=== PATIENT | male | born 1990 | race Caucasian/White ===

== ENCOUNTER 2017-05-26 23:54 | Inpatient (IN) | payer BC, OTHER ==
[2017-05-27] VITALS: BMI 34.2
[2017-05-27 02:06] LABS: BASOPHIL 0.4 % (0-2.0); MCH 27.8 pg (25.7-33.7); MCHC 33.1 g/dl (32.0-35.9); MEAN CELL VOLUME 83.7 fl (80-96); MEAN PLT VOLUME 8.8 fl (7.5-11.1); NEUTROPHILS 74.8 % (42.8-82.8); PLATELET COUNT 200 K/MM3 (134-434); RDW 12.4 % (11.9-15.9); WHITE BLOOD COUNT 10.1 K/mm3 (4.0-10.0)
[2017-05-27 02:08] LABS: URINE APPEARANCE CLEAR; URINE BILIRUBIN NEGATIVE (NEGATIVE); URINE COLOR LTYELLOW; URINE GLUCOSE (UA) NEGATIVE (NEGATIVE); URINE KETONE TRACE (NEGATIVE); URINE LEUK ESTERASE NEGATIVE (NEGATIVE); URINE NITRITE NEGATIVE (NEGATIVE); URINE PROTEIN NEGATIVE (NEGATIVE); URINE UROBILINOGEN NEGATIVE E.U./dl (0.2-1.0)
[2017-05-27 02:15] LABS: URINE BLOOD 2+ (NEGATIVE)
[2017-05-27 02:16] LABS: URINE BACTERIA RARE /hpf (NONE SEEN); URINE MUCUS FEW; URINE RBC 18 /hpf (0-3); URINE WBC 2 /hpf (3-5)
[2017-05-27 02:28] LABS: ALBUMIN 3.7 g/dl (3.4-5.0); ANION GAP 6 (8-16); BILIRUBIN,TOTAL 0.4 mg/dL (0.2-1.0); CALCIUM 8.8 mg/dL (8.5-10.1); CO2 33 mmol/L (21-32); CREATININE 1.1 mg/dL (0.7-1.3); GLUCOSE,RANDOM 102 mg/dL (74-106); SGOT/AST 18 U/L (15-37); SGPT/ALT 26 U/L (12-78); TOT PROT 6.3 g/dl (6.4-8.2)
[2017-05-27 02:29] LABS: ALK PHOS 57 U/L (45-117)
--- NOTE | 2017-05-27 02:59 | PDOC ---
History of Present Illness - General History Source: Patient Exam Limitations: No Limitations - History of Present Illness Initial Comments: 05/27/17 03:05 The patient is a 26 year old male with a no significant past medical history who presents to the ED with complaints of right upper quadrant pain for 6 months. Patient reports intermittent right upper quadrant pain that progressively worsened today with nausea. Patient states his right upper quadrant pain is 9/10 in severity and slightly radiates to his right sided back. He notes his right upper quadrant pain is worsened with meals. Patient reports visiting his PMD for his right upper quadrant pain and was told is was a possible gallstone. Denies fevers or chills. Denies vomiting or diarrhea. Denies chest pain or shortness of breath. Denies dysuria, frequency, urgency, or changes in urinary output. <Sara Saez - Last Filed: 05/27/17 03:05> <Kathryn Carranza - Last Filed: 05/28/17 23:16> - General Chief Complaint: Pain Stated Complaint: PAIN Time Seen by Provider: 05/27/17 02:41 Past History <Sara Saez - Last Filed: 05/27/17 03:05> - Past Medical History Other medical history: denies - Psycho/Social/Smoking Cessation Hx Suicidal Ideation: No Smoking History: Never smoked Hx Alcohol Use: No Drug/Substance Use Hx: No Substance Use Type: None <Kathryn Carranza - Last Filed: 05/28/17 23:16> - Past Medical History Allergies/Adverse Reactions: Allergies Allergy/AdvReac Type Severity Reaction Status Date / Time No Known Allergies Allergy Verified 05/26/17 23:59 Home Medications: Ambulatory Orders Meclizine HCl [Antivert -] 25 mg PO TID #21 tablet 02/03/16 Review of Systems - Review of Systems Able to Perform ROS?: Yes Comments:: 05/27/17 03:05 CONSTITUTIONAL: Absent: fever, chills, diaphoresis, generalized weakness, malaise, loss of appetite HEENT: Absent: rhinorrhea, nasal congestion, throat pain, throat swelling, difficulty swallowing, mouth swelling, ear pain, eye pain, visual Changes CARDIOVASCULAR: Absent: chest pain, syncope, palpitations, irregular heart rate, lightheadedness , peripheral edema RESPIRATORY: Absent: cough, shortness of breath, dyspnea with exertion, orthopnea, wheezing, stridor, hemoptysis GASTROINTESTINAL: + abdominal pain,nausea Absent: abdominal distension, vomiting, diarrhea, constipation, melena, hematochezia GENITOURINARY: Absent: dysuria, frequency, urgency, hesitancy, hematuria, flank pain, genital pain MUSCULOSKELETAL: Absent: myalgia, arthralgia, joint swelling SKIN: Absent: rash, itching, pallor HEMATOLOGIC/IMMUNOLOGIC: Absent: easy bleeding, easy bruising, lymphadenopathy, frequent infections ENDOCRINE: Absent: unexplained weight gain, unexplained weight loss, heat intolerance, cold intolerance NEUROLOGIC: Absent: headache, focal weakness or paresthesias, dizziness, unsteady gait, seizure, mental status changes, bladder or bowel incontinence PSYCHIATRIC: Absent: anxiety, depression, suicidal or homicidal ideation, hallucinations. All Other Systems: Reviewed and Negative <Sara Saez - Last Filed: 05/27/17 03:05> *Physical Exam - Vital Signs Last Vital Signs Temp Pulse Resp BP Pulse Ox 98.6 F 63 18 148/78 99 05/26/17 23:56 05/26/17 23:56 05/26/17 23:56 05/26/17 23:56 05/26/17 23:56 - Physical Exam Comments: 05/27/17 03:05 GENERAL: Well developed, well nourished. Awake and alert. No acute distress. HEENT: Normocephalic, atraumatic. PERRLA, EOMI. No conjunctival pallor. Sclera are non- icteric. Moist mucous membranes. Oropharynx is clear. NECK: Supple. Full ROM. No JVD. Carotid pulses 2+ and symmetric, without bruits. No thyromegaly. NCo lymphadenopathy. CARDIOVASCULAR: Regular rate and rhythm. No murmurs, rubs, or gallops. Distal pulses are 2+ and symmetric. PULMONARY: No evidence of respiratory distress. Lungs clear to auscultation bilaterally. No wheezing, rales or rhonchi. ABDOMINAL: Soft. Non-tender. Non-distended. No rebound or guarding. No organomegaly. Normoactive bowel sounds. MUSCULOSKELETAL Normal range of motion at all joints. No bony deformities or tenderness. No CVA tenderness. EXTREMITIES: No cyanosis. No clubbing. No edema. No calf tenderness. SKIN: Warm and dry. Normal capillary refill. No rashes. No jaundice. NEUROLOGICAL: Alert, awake, appropriate. Cranial nerves 2-12 intact. No deficits to light touch and temperature in face, upper extremities and lower extremities. No motor deficits in the in face, upper extremities and lower extremities. Normoreflexic in the upper and lower extremities. Normal speech. Toes are down- going bilaterally. Gait is normal without ataxia. PSYCHIATRIC: Cooperative. Good eye contact. Appropriate mood and affect. <Sara Saez - Last Filed: 05/27/17 03:05> - Vital Signs Last Vital Signs Temp Pulse Resp BP Pulse Ox 98.6 F 63 18 148/78 99 05/26/17 23:56 05/26/17 23:56 05/26/17 23:56 05/26/17 23:56 05/26/17 23:56 <Kathryn Carranza - Last Filed: 05/28/17 23:16> ED Treatment Course - LABORATORY CBC & Chemistry Diagram: 05/27/17 01:52 05/27/17 01:52 - ADDITIONAL ORDERS Additional order review: Laboratory Results 05/27/17 05/27/17 01:53 01:52 Sodium 140 Potassium 3.9 Chloride 101 Carbon Dioxide 33 H Anion Gap 6 L BUN 24 H D Creatinine 1.1 D Creat Clearance w eGFR > 60 Random Glucose 102 Calcium 8.8 Total Bilirubin 0.4 AST 18 ALT 26 Alkaline Phosphatase 57 Total Protein 6.3 L Albumin 3.7 Lipase 93 Urine Color Ltyellow Urine Appearance Clear Urine pH 6.0 Urine Protein Negative Urine Glucose (UA) Negative Urine Ketones Trace H Urine Blood 2+ H Urine Nitrite Negative Urine Bilirubin Negative Urine Urobilinogen Negative Ur Leukocyte Esterase Negative Urine RBC 18 Urine WBC 2 Ur Epithelial Cells Rare Urine Bacteria Rare Urine Mucus Few 05/27/17 01:52 RBC 4.64 MCV 83.7 MCHC 33.1 RDW 12.4 MPV 8.8 Neutrophils % 74.8 Lymphocytes % 18.5 D Monocytes % 5.3 Eosinophils % 1.0 Basophils % 0.4 - Medications Given in the ED: ED Medications Discontinued Medications Generic Name Dose Route Start Last Admin Trade Name Freq PRN Reason Stop Dose Admin Ketorolac Tromethamine 60 mg 05/27/17 03:00 05/27/17 03:00 Toradol Injection - IM 05/27/17 03:01 60 mg ONCE ONE Administration <Sara Saez - Last Filed: 05/27/17 03:05> - LABORATORY CBC & Chemistry Diagram: 05/28/17 07:45 05/28/17 07:45 - ADDITIONAL ORDERS Additional order review: Laboratory Results 05/27/17 05/27/17 01:53 01:52 Sodium 140 Potassium 3.9 Chloride 101 Carbon Dioxide 33 H Anion Gap 6 L BUN 24 H D Creatinine 1.1 D Creat Clearance w eGFR > 60 Random Glucose 102 Calcium 8.8 Total Bilirubin 0.4 AST 18 ALT 26 Alkaline Phosphatase 57 Total Protein 6.3 L Albumin 3.7 Lipase 93 Urine Color Ltyellow Urine Appearance Clear Urine pH 6.0 Urine Protein Negative Urine Glucose (UA) Negative Urine Ketones Trace H Urine Blood 2+ H Urine Nitrite Negative Urine Bilirubin Negative Urine Urobilinogen Negative Ur Leukocyte Esterase Negative Urine RBC 18 Urine WBC 2 Ur Epithelial Cells Rare Urine Bacteria Rare Urine Mucus Few 05/27/17 01:52 RBC 4.64 MCV 83.7 MCHC 33.1 RDW 12.4 MPV 8.8 Neutrophils % 74.8 Lymphocytes % 18.5 D Monocytes % 5.3 Eosinophils % 1.0 Basophils % 0.4 <Kathryn Carranza - Last Filed: 05/28/17 23:16> Medical Decision Making - Medical Decision Making 05/27/17 06:53 Pt comes with right side pain and right abd pain. He has no rebound or guarding in the RUQ, but he has some flank pain and blood in the urine. LFTs are normal. CT scan however shows cholecystitis; sonogram was ordered for today AM when the ultrasound dept opens. Of Pt has cholecystitis, he will require surgical admission. If sono is negative/normal, then he must adhere to a low fat diet. Pt will be signed out to the day ER doctor. <Kathryn Carranza - Last Filed: 05/28/17 23:16> *DC/Admit/Observation/Transfer - Attestations Scribe Attestion: 05/27/17 03:05 Documentation prepared by Sara Saez, acting as medical office scheduler for Kathryn Carranza MD <Sara Saez - Last Filed: 05/27/17 03:05> <Kathryn Carranza - Last Filed: 05/28/17 23:16> Diagnosis at time of Disposition: Cholecystitis - Discharge Dispostion Disposition: HOME Condition at time of disposition: Stable - Referrals
[2017-05-27] MEDS ORDERED: KETOROLAC TROMETHAMINE 60 MG/2 ML VIAL IM ONE (03:00)
[2017-05-27] MEDS ORDERED: KETOROLAC TROMETHAMINE 30 MG/1 ML VIAL IVPUSH ONE (03:01)
[2017-05-27] MEDS ORDERED: KETOROLAC TROMETHAMINE 30 MG/1 ML VIAL ONE ×2 (03:02→18:31)
[2017-05-27] MEDS ORDERED: SODIUM CHLORIDE 0.9% 500 ML INFUS.BAG IV ONE (03:02)
--- NOTE | 2017-05-27 08:07 | PDOC ---
*Physical Exam - Vital Signs Last Vital Signs Temp Pulse Resp BP Pulse Ox 98.0 F 80 20 123/80 98 05/27/17 06:58 05/27/17 06:58 05/27/17 06:58 05/27/17 06:58 05/27/17 06:58 <Neela Boyle - Last Filed: 05/27/17 08:53> - Vital Signs Last Vital Signs Temp Pulse Resp BP Pulse Ox 98.0 F 80 20 123/80 98 05/27/17 06:58 05/27/17 06:58 05/27/17 06:58 05/27/17 06:58 05/27/17 06:58 <Herber Merino - Last Filed: 05/27/17 09:24> ED Treatment Course - LABORATORY CBC & Chemistry Diagram: 05/27/17 01:52 05/27/17 01:52 - ADDITIONAL ORDERS Additional order review: Laboratory Results 05/27/17 05/27/17 01:53 01:52 Sodium 140 Potassium 3.9 Chloride 101 Carbon Dioxide 33 H Anion Gap 6 L BUN 24 H D Creatinine 1.1 D Creat Clearance w eGFR > 60 Random Glucose 102 Calcium 8.8 Total Bilirubin 0.4 AST 18 ALT 26 Alkaline Phosphatase 57 Total Protein 6.3 L Albumin 3.7 Lipase 93 Urine Color Ltyellow Urine Appearance Clear Urine pH 6.0 Urine Protein Negative Urine Glucose (UA) Negative Urine Ketones Trace H Urine Blood 2+ H Urine Nitrite Negative Urine Bilirubin Negative Urine Urobilinogen Negative Ur Leukocyte Esterase Negative Urine RBC 18 Urine WBC 2 Ur Epithelial Cells Rare Urine Bacteria Rare Urine Mucus Few 05/27/17 01:52 RBC 4.64 MCV 83.7 MCHC 33.1 RDW 12.4 MPV 8.8 Neutrophils % 74.8 Lymphocytes % 18.5 D Monocytes % 5.3 Eosinophils % 1.0 Basophils % 0.4 - Medications Given in the ED: ED Medications Discontinued Medications Generic Name Dose Route Start Last Admin Trade Name Freq PRN Reason Stop Dose Admin Ketorolac Tromethamine 60 mg 05/27/17 03:00 05/27/17 03:00 Toradol Injection - IM 05/27/17 03:01 60 mg ONCE ONE Administration Ketorolac Tromethamine 30 mg 05/27/17 03:01 05/27/17 03:06 Toradol Injection - IVPUSH 05/27/17 03:02 30 mg ONCE ONE Administration Sodium Chloride 1,000 ml 05/27/17 03:02 05/27/17 03:06 Normal Saline - IV 05/27/17 03:03 1,000 ml ONCE ONE Administration <Neela Boyle - Last Filed: 05/27/17 08:53> - LABORATORY CBC & Chemistry Diagram: 05/27/17 01:52 05/27/17 01:52 - ADDITIONAL ORDERS Additional order review: Laboratory Results 05/27/17 05/27/17 01:53 01:52 Sodium 140 Potassium 3.9 Chloride 101 Carbon Dioxide 33 H Anion Gap 6 L BUN 24 H D Creatinine 1.1 D Creat Clearance w eGFR > 60 Random Glucose 102 Calcium 8.8 Total Bilirubin 0.4 AST 18 ALT 26 Alkaline Phosphatase 57 Total Protein 6.3 L Albumin 3.7 Lipase 93 Urine Color Ltyellow Urine Appearance Clear Urine pH 6.0 Urine Protein Negative Urine Glucose (UA) Negative Urine Ketones Trace H Urine Blood 2+ H Urine Nitrite Negative Urine Bilirubin Negative Urine Urobilinogen Negative Ur Leukocyte Esterase Negative Urine RBC 18 Urine WBC 2 Ur Epithelial Cells Rare Urine Bacteria Rare Urine Mucus Few 05/27/17 01:52 RBC 4.64 MCV 83.7 MCHC 33.1 RDW 12.4 MPV 8.8 Neutrophils % 74.8 Lymphocytes % 18.5 D Monocytes % 5.3 Eosinophils % 1.0 Basophils % 0.4 - RADIOLOGY Radiograph Interpretation: 05/27/17 08:32 EXAM: Ultrasound abdomen limited, right upper quadrant and limited abdominal duplex IMAGES: 44 INDICATION: Rule out cholecystitis DATE OF SERVICE: 2017-05 07:16:47.0 COMPARISON: none FINDINGS: Right upper quadrant ultrasound:The liver is normal, without mass or biliary duct dilation. The gallbladder is filled with stones. Interval is thickened to 5 mm and there is a positive sonographic Sandoval sign. Findings are highly suspicious for acute cholecystitis The CBD is not dilated and measures4 millimeters in diameter. Right kidney measures 10.1centimeters in length and is unremarkable. The visualized aorta and IVC are normal. Pancreas is secured. Abdominal duplex: The main portal vein demonstrates normal hepatopedal flow. IMPRESSION: High suspicion for acute cholecystitis without biliary duct dilation. THIS DOCUMENT HAS BEEN ELECTRONICALLY SIGNED Parker Brooks MD 05/27/2017 08:03 EST - Medications Given in the ED: ED Medications Discontinued Medications Generic Name Dose Route Start Last Admin Trade Name Tree PRN Reason Stop Dose Admin Ketorolac Tromethamine 60 mg 05/27/17 03:00 05/27/17 03:00 Toradol Injection - IM 05/27/17 03:01 60 mg ONCE ONE Administration Ketorolac Tromethamine 30 mg 05/27/17 03:01 05/27/17 03:06 Toradol Injection - IVPUSH 05/27/17 03:02 30 mg ONCE ONE Administration Sodium Chloride 1,000 ml 05/27/17 03:02 05/27/17 03:06 Normal Saline - IV 05/27/17 03:03 1,000 ml ONCE ONE Administration <Herber Merino - Last Filed: 05/27/17 09:24> Medical Decision Making - Medical Decision Making 05/27/17 07:58 I received this patient on sign out He presented to the ER with a complaint of RUQ pain which has been present for months He has had no fevers or chills CT consistent with acute cholecystitis Plan is for U/S as pt has no RUQ tenderness on examination Pt is en route to U/S now 05/27/17 07:59 05/27/17 08:53 Us: (+) acute cholecystitis will contact Dr gonzalez he request [facility] Call placed to Dr. Christensen She will come in to see this patient Requests cefoxitin 2g q6h <Neela Boyle - Last Filed: 05/27/17 08:53> - Medical Decision Making 05/27/17 08:[address] Gonzalez's answering service placed. Page sent out. Awaiting call back. 05/27/17 08:41 Dr. Gonzalez called into the Emergency Department. Case discussed. Agreed to admit to Med Surg. and have [facility] consulted for surgery. 05/27/17 08:43 First call to EMILIANO's answering service placed. Page sent out to Dr. Christensen. Awaiting call back. 05/27/17 08:47 Dr. Christensen called into the Emergency Department. Case discussed. Dr. Christensen is on her way to the hospital and will come to evaluate the patient personally. Dr. Christensen asked that we call Dr. Gonzalez and ask him to put the patient on a specific type of medication. 07/08/17 09:01 First call placed to Dr. Gonzalez regarding Dr. Greene request. Asked Dr. Gonzalez's service to include Dr. Christensen's request in the page. <Herber Merino - Last Filed: 05/27/17 09:24> *DC/Admit/Observation/Transfer - Discharge Dispostion Admit: Yes <Neela Boyle - Last Filed: 05/27/17 08:53> - Attestations Scribe Attestion: 05/27/17 09:03 Documentation prepared by Herber Merino, acting as medical information specialist for Neela Boyle MD. <Herber Merino - Last Filed: 05/27/17 09:24> Diagnosis at time of Disposition: Cholecystitis - Discharge Dispostion Condition at time of disposition: Stable - Referrals Referrals: Zamzam Ruth MD [Primary Care Provider] - - Patient Instructions - Post Discharge Activity
[2017-05-27] MEDS: SODIUM CHLORIDE 1,000 ML IV STA ×2 (08:42→11:57)
[2017-05-27] MEDS ORDERED: cefOXitin SODIUM 2 GM VIAL (RESTRICTED TO ID) IVPB ONE (08:52)
[2017-05-27] MEDS ORDERED: ACETAMINOPHEN 650 MG SUPP.RECT PR PRN (11:55)
[2017-05-27] MEDS ORDERED: ONDANSETRON 4 MG/2 ML VIAL IVPB PRN ×2 (11:55→20:25)
[2017-05-27] MEDS ORDERED: morphine CARPU-JECT 4 MG/1 ML DISP.SYRIN IVPUSH PRN ×2 (11:55→20:25)
--- NOTE | 2017-05-27 11:55 | HP ---
Admitting History and Physical - Primary Care Physician PCP: Feliz Beth - Admission Chief Complaint: ABD PAIN/ACUTE CHOLCYSTITIS/HEMATUREA History of Present Illness: ACUTE ABD PAIN FOR PAST FEW DAYS THEN PROGRESSED WITH NAUSEA AND VOMITING, SURGICAL CLEARANCE FOR CHOLCYSTECTOMY. History Source: Patient - Smoking History Smoking history: Never smoked Have you smoked in the past 12 months: No Aproximately how many cigarettes per day: 0 - Alcohol/Substance Use Hx Alcohol Use: No Home Medications - Allergies Allergies/Adverse Reactions: Allergies Allergy/AdvReac Type Severity Reaction Status Date / Time No Known Allergies Allergy Verified 05/26/17 23:59 - Home Medications Home Medications: Ambulatory Orders Meclizine HCl [Antivert -] 25 mg PO TID #21 tablet 02/03/16 Review of Systems - Review of Systems Constitutional: reports: Fever, Loss of Appetite Eyes: reports: No Symptoms HENT: reports: No Symptoms Neck: reports: No Symptoms Cardiovascular: reports: No Symptoms Respiratory: reports: No Symptoms Gastrointestinal: reports: Abdominal Pain Genitourinary: reports: No Symptoms Musculoskeletal: reports: Muscle Weakness Integumentary: reports: No Symptoms Neurological: reports: No Symptoms Endocrine: reports: No Symptoms Hematology/Lymphatic: reports: No Symptoms Psychiatric: reports: No Symptoms Physical Examination Vital Signs: Vital Signs Temperature 98.4 F 05/27/17 11:07 Pulse Rate 50 L 05/27/17 11:07 Respiratory Rate 20 05/27/17 11:07 Blood Pressure 140/79 05/27/17 11:07 O2 Sat by Pulse Oximetry (%) 100 05/27/17 10:11 Constitutional: Yes: Mild Distress Eyes: Yes: WNL HENT: Yes: WNL Neck: Yes: WNL Cardiovascular: Yes: WNL Respiratory: Yes: WNL Gastrointestinal: Yes: Tenderness Renal/: Yes: WNL Musculoskeletal: Yes: WNL Extremities: Yes: WNL Edema: No Peripheral Pulses WNL: Yes Integumentary: Yes: WNL Wound/Incision: Yes: Clean/Dry Neurological: Yes: WNL ...Motor Strength: WNL Psychiatric: Yes: WNL Problem List - Problems (1) Cholecystitis Code(s): K81.9 - CHOLECYSTITIS, UNSPECIFIED (2) Hematuria Code(s): R31.9 - HEMATURIA, UNSPECIFIED Assessment/Plan MEDICAL CLEARANCE FOR CHOLCYSTECTOMY CHECK BLADDER AND RENAL SONO FOR HEMATUREA URINE C AND S IVF PAIN CONTROL
[2017-05-27] MEDS ORDERED: cefOXitin SODIUM 2 GM VIAL (RESTRICTED TO ID) IVPB SCH ×2 (12:00→17:00)
[2017-05-27] MEDS: CEFOXITIN SODIUM 2 GM in DEXTROSE 5%-WATER - 100 ML IVPB ONE ×2 (12:00→12:25)
[2017-05-27] MEDS ORDERED: DEXTROSE 5%-NORMAL SALINE 1,000 ML IV SCH (12:00)
--- NOTE | 2017-05-27 15:59 | CONSULT ---
Consult Consult Specialty:: General Surgery Referred by:: Dr. Boyle and Dr. Beth Reason for Consultation:: acute cholecystitis - History of Present Illness Chief Complaint: RUQ pain History of Present Illness: 26yo healthy M with borderline cholesterol recently diagnosed has had intermittent RUQ pain lasting less than an hour usually, related to fatty food intake over the last 6 months. He had some greasy food a couple of days ago and yesterday began experiencing RUQ pain that did not go away, associated with some nausea but no vomiting. He came to ER, where CT and US show acute cholecystitis with multiple gallstones, wall thickening, some pericholecystic edema but no significant fluid and no CBD dilation. He has been started on fluids and antibiotics and his pain has mostly resolved. - History Source History Provided By: Patient Limitations to Obtaining History: No Limitations - Past Medical History Cardio/Vascular: Yes: Hyperlipdemia (borderline) - Alcohol/Substance Use Hx Alcohol Use: Yes (social) History of Substance Use: reports: None - Smoking History Smoking history: Current some day smoker Have you smoked in the past 12 months: Yes Aproximately how many cigarettes per day: 0 (cigars, ~monthly) Home Medications - Allergies Allergies/Adverse Reactions: Allergies Allergy/AdvReac Type Severity Reaction Status Date / Time No Known Allergies Allergy Verified 05/26/17 23:59 - Home Medications Home Medications: Ambulatory Orders Meclizine HCl [Antivert -] 25 mg PO TID #21 tablet 02/03/16 Family Disease History - Family Disease History Family Disease History: Diabetes: Grandparent, [place]: Grandparent Review of Systems - Review of Systems Constitutional: denies: Chills, Fever Eyes: reports: Other (wears contacts). denies: Blurred Vision, Double Vision HENT: denies: Difficult Swallowing, Nasal Congestion, Throat Pain Neck: denies: Swollen Glands, Tenderness Cardiovascular: denies: Chest Pain, Palpitations Respiratory: reports: Cough (dry, over last few weeks). denies: SOB Gastrointestinal: reports: Abdominal Pain (see hpi), Nausea (with pain episodes at times). denies: Constipation, Diarrhea, Vomiting Genitourinary: denies: Burning, Dysuria Musculoskeletal: reports: Back Pain (low back). denies: Joint Pain Integumentary: denies: Change in Color, Rash Neurological: denies: Dizziness, Headache Endocrine: denies: Unexplained Weight Gain, Unexplained Weight Loss Physical Exam Vital Signs: Vital Signs Temperature 98.0 F 05/27/17 14:13 Pulse Rate 53 L 05/27/17 14:13 Respiratory Rate 18 05/27/17 14:13 Blood Pressure 134/68 05/27/17 14:13 O2 Sat by Pulse Oximetry (%) 100 05/27/17 11:25 Constitutional: Yes: Well Nourished, No Distress, Calm Eyes: Yes: Conjunctiva Clear, EOM Intact HENT: Yes: Atraumatic, Normocephalic Cardiovascular: Yes: Regular Rate and Rhythm. No: Murmur Respiratory: Yes: Regular, CTA Bilaterally Gastrointestinal: Yes: Normal Bowel Sounds, Soft, Tenderness (mild RUQ no R/G), Tenderness, Epigastrium (mild) ...Rectal Exam: Yes: Deferred Renal/: No: CVA Tenderness - Left, CVA Tenderness - Right Musculoskeletal: No: Joint Stiffness, Joint Swelling Extremities: No: Cool, Cyanosis Edema: No Peripheral Pulses WNL: Yes Integumentary: No: Jaundice, Rash Neurological: Yes: Alert, Oriented Psychiatric: Yes: Alert, Oriented Labs: CBCD WBC 10.1 K/mm3 (4.0-10.0) H D 05/27/17 01:52 RBC 4.64 M/mm3 (4.00-5.60) 05/27/17 01:52 Hgb 12.9 GM/dL (11.7-16.9) D 05/27/17 01:52 Hct 38.9 % (35.4-49) 05/27/17 01:52 MCV 83.7 fl (80-96) 05/27/17 01:52 MCHC 33.1 g/dl (32.0-35.9) 05/27/17 01:52 RDW 12.4 % (11.9-15.9) 05/27/17 01:52 Plt Count 200 K/MM3 (134-434) 05/27/17 01:52 MPV 8.8 fl (7.5-11.1) 05/27/17 01:52 CMP Sodium 140 mmol/L (136-145) 05/27/17 01:52 Potassium 3.9 mmol/L (3.5-5.1) 05/27/17 01:52 Chloride 101 mmol/L (98-107) 05/27/17 01:52 Carbon Dioxide 33 mmol/L (21-32) H 05/27/17 01:52 Anion Gap 6 (8-16) L 05/27/17 01:52 BUN 24 mg/dL (7-18) H D 05/27/17 01:52 Creatinine 1.1 mg/dL (0.7-1.3) D 05/27/17 01:52 Creat Clearance w eGFR > 60 (>60) 05/27/17 01:52 Calcium 8.8 mg/dL (8.5-10.1) 05/27/17 01:52 Total Bilirubin 0.4 mg/dL (0.2-1.0) 05/27/17 01:52 AST 18 U/L (15-37) 05/27/17 01:52 ALT 26 U/L (12-78) 05/27/17 01:52 Alkaline Phosphatase 57 U/L (45-117) 05/27/17 01:52 Total Protein 6.3 g/dl (6.4-8.2) L 05/27/17 01:52 Albumin 3.7 g/dl (3.4-5.0) 05/27/17 01:52 Imaging - Results Cat Scan: Report Reviewed Ultrasound: Report Reviewed Problem List - Problems (1) Cholecystitis Assessment/Plan: acute cholecystitis with cholelithiasis feeling better, on antibiotics discussed R/B/A of lap marivel possible open with patient including but not limited to bleeding infection bile leak injury to adjacent structures anesthesia ; delayed/elective or no surgery with risks of recurrent episodes Pt desires to go ahead with lap marivel today Will go to OR for same Cefoxitin 2g independent consultant to OR NPO until after surgery Code(s): K81.9 - CHOLECYSTITIS, UNSPECIFIED (2) Hematuria Assessment/Plan: some microscopic blood on UA primary team to work up Code(s): R31.9 - HEMATURIA, UNSPECIFIED
[2017-05-27] MEDS ORDERED: PIPERACILLIN/TAZOB 4.5 GM/100 ML PRE-DOCKED IVPB ONE ×2 (17:00→18:25)
[2017-05-27] MEDS ORDERED: PIPERACILLIN/TAZOB 4.5 GM 100 ML IVPB SCH (17:00)
[2017-05-27] MEDS ORDERED: MIDAZOLAM HCL 2 MG/2 ML SINGLE DOSE VIAL ONE (18:02)
[2017-05-27] MEDS ORDERED: PROPOFOL 20 ML ONE ×2 (18:02→19:22)
[2017-05-27] MEDS ORDERED: ROCURONIUM BROMIDE 50 MG/5 ML VIAL ONE ×2 (18:02→19:22)
[2017-05-27] MEDS ORDERED: DEXAMETHASONE SOD PHOSPHATE 4 MG/1 ML VIAL ONE (18:31)
[2017-05-27] MEDS ORDERED: PT OWN MED DRAWER 7, Y5N ONE (18:37)
[2017-05-27] MEDS ORDERED: GLYCOPYRROLATE 0.2 MG/1 ML VIAL ONE (18:53)
[2017-05-27] MEDS ORDERED: NEOSTIGMINE METHYLSULFATE 0.5 MG/ML - 10 ML MDV ONE (18:53)
[2017-05-27] MEDS ORDERED: LIDOCAINE HCL 1%, 10 MG/ML (20ML VIAL) ONE (18:58)
[2017-05-27] MEDS ORDERED: BUPIVACAINE HCL/PF 0.5% (5MG/ML) 10 ML VIAL IJ ONE (19:35)
[2017-05-27] MEDS ORDERED: PROMETHAZINE HCL 25 MG/1 ML VIAL IVPUSH PRN (19:59)
[2017-05-27] MEDS ORDERED: LACTATED RINGERS SOLUTION 1,000 ML IV SCH (20:00)
--- NOTE | 2017-05-27 20:09 | OP ---
Operative Note - Note: Operative Date: 05/27/17 Pre-Operative Diagnosis: acute cholecystitis Operation: laparoscopic cholecystectomy Findings: enlarged, edematous gallbladder with multiple stones; critical view identified Post-Operative Diagnosis: Same as Pre-op Surgeon: Amrik Christensen Front Office Assistant: Timmy Cat Anesthesiologist/BEND SORTER: Peter Muller Anesthesia: General, Local (10 ml (1% lidocaine + 0.5% marcaine)) Specimens Removed: gallbladder to pathology Estimated Blood Loss (mls): 10 Fluid Volume Replaced (mls): 1,000 (crystalloid) Operative Report Dictated: Yes
[2017-05-27] MEDS ORDERED: ACETAMINOPHEN 500 MG TABLET (FP) PO PRN (20:25)
[2017-05-27] MEDS ORDERED: OXYCODONE/APAP 5/325MG COMBO TABLET PO PRN (20:25)
[2017-05-27] MEDS ORDERED: CEFOXITIN SODIUM 2 GM in DEXTROSE 5%-WATER - 100 ML IVPB ONE (20:30)
[2017-05-27] MEDS ORDERED: oxyCODONE HCL 5 MG TABLET PO PRN (20:42)
[2017-05-27] MEDS ORDERED: ACETAMINOPHEN 325 MG TABLET (FP) PO PRN (20:42)
[2017-05-27] MEDS: PIPERACILLIN/TAZOB 4.5 GM 100 ML IVPB SCH (23:12)
[2017-05-27] MEDS: LACTATED RINGERS SOLUTION 1,000 ML IV SCH (23:28)
--- NOTE | 2017-05-27 23:35 | HOSP ---
Physical Examination Vital Signs: Vital Signs Temperature 98.2 F 05/27/17 21:55 Pulse Rate 63 05/27/17 21:55 Respiratory Rate 18 05/27/17 21:55 Blood Pressure 118/75 05/27/17 21:55 O2 Sat by Pulse Oximetry (%) 98 05/27/17 21:55 Hospitalist Encounter Assessment: Paged by RN after patient complained of chest tightness and left shoulder pain. Patient states his chest feels like he needs to cough and that his left shoulder pain has been chronic for 1 month and was told by outside physician that he has rotator cuff injury and needs an MRI. Lungs are clear to auscultation bilaterally and L shoulder pain is reproducible on exam. Pt has 4/ 5 strength in L shoulder and arm. Pt will be evaluated by anaesthesia due to being s/p lap mairvel at 2100. Visit type - Emergency Visit Emergency Visit: No - New Patient This patient is new to me today: Yes Date on this admission: 05/27/17 - Critical Care Critical Care patient: No
[2017-05-28] MEDS: PIPERACILLIN/TAZOB 4.5 GM 100 ML IVPB SCH ×4 (04:45→22:09)
[2017-05-28 08:43] LABS: MCH 28.8 pg (25.7-33.7); MCHC 34.4 g/dl (32.0-35.9); MEAN CELL VOLUME 83.7 fl (80-96); MEAN PLT VOLUME 9.2 fl (7.5-11.1); PLATELET COUNT 202 K/MM3 (134-434); RDW 12.4 % (11.9-15.9); WHITE BLOOD COUNT 8.4 K/mm3 (4.0-10.0)
[2017-05-28] MEDS: LACTATED RINGERS SOLUTION 1,000 ML IV SCH (08:48)
--- NOTE | 2017-05-28 09:12 | PN ---
Progress Note (short form) - Note Progress Note: Post op day#1.S/p Lap cholecystectomy under GA uneventful.Patient stable.No any anesthesia related problem.Patient DC from the anesthesia care
[2017-05-28 09:23] LABS: ANION GAP 5 (8-16); CALCIUM 8.5 mg/dL (8.5-10.1); CO2 30 mmol/L (21-32); GLUCOSE,RANDOM 102 mg/dL (74-106)
--- NOTE | 2017-05-28 10:41 | PN ---
Progress Note (short form) - Note Progress Note: ID Consult dictated POD #1 laparoscopic cholecystectomy S/P acute cholecystitis Possible biliary sepsis Pending cultures, empiric coverage biliary tract pathogens with IV zosyn
--- NOTE | 2017-05-28 12:12 | PN ---
Progress Note, Physician Chief Complaint: POD #1 AWAKE ALERT MILD DISTRESS - Current Medication List Current Medications: Active Medications Acetaminophen (Tylenol -) 1,000 mg PO Q6H PRN PRN Reason: FEVER OR PAIN Acetaminophen (Tylenol -) 325 mg PO Q4H PRN PRN Reason: PAIN LEVEL 6-10 Stop: 05/30/17 20:41 Lactated Ringer's (Lactated Ringers Solution) 1,000 mls @ 125 mls/hr IV ASDIR MIRANDA Last Admin: 05/28/17 08:48 Dose: 125 mls/hr Piperacillin Sod/Tazobactam Sod (Zosyn 4.5gm Ivpb (Pre-Docked)) 100 mls @ 200 mls/hr IVPB Q6H-IV MIRANDA PRN Reason: Protocol Last Admin: 05/28/17 10:11 Dose: 200 mls/hr Morphine Sulfate (Morphine Injection -) 4 mg IVPUSH Q4H PRN PRN Reason: SEVERE PAIN Stop: 05/28/17 14:00 Ondansetron HCl (Zofran Injection) 4 mg IVPB Q6H PRN PRN Reason: NAUSEA Oxycodone HCl (Roxicodone -) 5 mg PO Q4H PRN PRN Reason: PAIN LEVEL 6-10 - Objective Vital Signs: Vital Signs Temperature 98 F 05/28/17 08:59 Pulse Rate 66 05/28/17 08:59 Respiratory Rate 18 05/28/17 08:59 Blood Pressure 128/63 05/28/17 08:59 O2 Sat by Pulse Oximetry (%) 98 05/27/17 21:55 Constitutional: Yes: Mild Distress Eyes: Yes: WNL HENT: Yes: WNL Neck: Yes: WNL Cardiovascular: Yes: WNL Respiratory: Yes: WNL Gastrointestinal: Yes: Tenderness Genitourinary: Yes: WNL Musculoskeletal: Yes: WNL Extremities: Yes: WNL Edema: No Peripheral Pulses WNL: Yes Integumentary: Yes: WNL Wound/Incision: Yes: Clean/Dry Neurological: Yes: WNL ...Motor Strength: WNL Psychiatric: Yes: WNL Labs: CBC, BMP 05/28/17 07:45 05/28/17 07:45 Problem List - Problems (1) Cholecystitis Code(s): K81.9 - CHOLECYSTITIS, UNSPECIFIED (2) Hematuria Code(s): R31.9 - HEMATURIA, UNSPECIFIED Assessment/Plan POD #1 S/P CHOLCYSTECTOMY ADVANCE DIET TOELRATED IV ABX ID AND SX EVAL APPRECIATED
--- NOTE | 2017-05-28 14:16 | CONS ---
DATE OF CONSULTATION: DATE OF DICTATION: 05/28/2017 The patient is a 26-year-old male who is evaluated for acute cholecystitis. He reports a 6-month history of intermittent right upper quadrant abdominal pain, usually associated with ingestion of fatty meals. He developed acute worsening of the pain, prompting him to present to the emergency room. CAT scan of the abdomen and pelvis was consistent with acute cholecystitis. The patient was taken to the operating room, where a laparoscopic cholecystectomy was performed yesterday. He is presently postoperative day number 1. He has some incisional discomfort. He denies any nausea or vomiting. He has not had a bowel movement. He has been afebrile. His white blood cell count is now normal. The patient received perioperative Zosyn. Past medical history negative. He is non-diabetic. No known allergies. Home medications include meclizine. 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 Positive tobacco. Occasional EtOH. SYSTEMS REVIEW: Neurologic: No loss of consciousness, seizure activity, or focal weakness. Cardiac: Negative chest pain or palpitations. Respiratory: Negative cough or sputum production. Gastrointestinal: As per HPI. Genitourinary: Negative for urinary tract infection. LABORATORY DATA: White count on admission 10.1, presently 8.4, hematocrit 39.0, platelet count 202. BUN 11, creatinine 0.1, total bilirubin 0.4, alkaline phosphatase 57, AST 18. Blood and urine cultures pending. Urinalysis: 2 white cells. PHYSICAL EXAMINATION: General: He is awake and alert, he is not acutely toxic appearing. Vital Signs: Temperature 98. Blood pressure 128/63. Pulse 66, regular. Respirations 18 per minute. Eyes: Sclerae anicteric. Heart Sounds: S1, S2. Lungs: Clear. Abdomen: Soft. No appreciable bowel sounds. Surgical dressings are in place over the laparoscopic incisions. Mild diffuse tenderness. Extremities: Negative for edema. IMPRESSION: 1. Postoperative day number 1 laparoscopic cholecystectomy. 2. Status post acute cholecystitis. 3. Possible biliary sepsis. Continue empiric coverage of biliary tract pathogens with Zosyn. Advance diet. Once is tolerating diet, may substitute oral Augmentin. Will follow. Thank you for the kind referral. CARLOS ROCHA M.D. [id number]
--- NOTE | 2017-05-28 17:53 | PN ---
Progress Note, Physician Chief Complaint: RUQ pain History of Present Illness: POD 1 s/p lap marivel seen and examined at bedside, sitting up for dinner, examined lying down as well , with fiancee at bedside no n/v, f/c, + voiding, + flatus, no BM yet, mild pain, mostly incisional, RUQ pain is gone has not asked for pain meds recently about to eat dinner - has had only ice earlier and liquids just before dinner arrived ambulating well - Current Medication List Current Medications: Active Medications Acetaminophen (Tylenol -) 1,000 mg PO Q6H PRN PRN Reason: FEVER OR PAIN Acetaminophen (Tylenol -) 325 mg PO Q4H PRN PRN Reason: PAIN LEVEL 6-10 Stop: 05/30/17 20:41 Lactated Ringer's (Lactated Ringers Solution) 1,000 mls @ 125 mls/hr IV ASDIR MIRANDA Last Admin: 05/28/17 08:48 Dose: 125 mls/hr Piperacillin Sod/Tazobactam Sod (Zosyn 4.5gm Ivpb (Pre-Docked)) 100 mls @ 200 mls/hr IVPB Q6H-IV MIRANDA PRN Reason: Protocol Last Admin: 05/28/17 16:02 Dose: 200 mls/hr Ondansetron HCl (Zofran Injection) 4 mg IVPB Q6H PRN PRN Reason: NAUSEA Oxycodone HCl (Roxicodone -) 5 mg PO Q4H PRN PRN Reason: PAIN LEVEL 6-10 - Objective Vital Signs: Vital Signs Temperature 98.5 F 05/28/17 14:30 Pulse Rate 53 L 05/28/17 14:30 Respiratory Rate 20 05/28/17 14:30 Blood Pressure 130/7 05/28/17 14:30 O2 Sat by Pulse Oximetry (%) 98 05/27/17 21:55 Constitutional: Yes: Well Nourished, No Distress, Calm Eyes: Yes: Conjunctiva Clear. No: Sclera Icterus Cardiovascular: Yes: Regular Rate and Rhythm. No: Murmur Respiratory: Yes: Regular, CTA Bilaterally Gastrointestinal: Yes: Normal Bowel Sounds, Soft, Distention (minimal), Tenderness (mild incisional only) Extremities: No: Cool, Cyanosis Edema: No Integumentary: No: Jaundice, Rash Wound/Incision: Yes: Other (dressings x4 intact - some bloodstaining on umbilical and some dried stains on others; steristrips underneath) Neurological: Yes: Alert, Oriented Labs: CBC, BMP 05/28/17 07:45 05/28/17 07:45 Problem List - Problems (1) Calculus of gallbladder with cholecystitis without biliary obstruction Assessment/Plan: acute cholecystitis POD1 s/p laparoscopic cholecystectomy feeling better beginning diet - hungry, tolerated ice and liquid saline lock IV after dinner ambulating, voiding, minimal pain no fevers, no need for antibiotics after discharge tylenol for pain prn, ok if needs tylenol/narcotic combo for couple days prn but does not seem to discussed lifting restrictions, dressing removal tomorrow, shower but no bathing /submerging pt to call for f/u appt in about 2 weeks postop instructions in discharge plan ok for d/c home from surgical standpoint if tolerating dinner Thank you for the opportunity to participate in the care of this patient. Code(s): K80.00 - CALCULUS OF GALLBLADDER W ACUTE CHOLECYST W/O OBSTRUCTION Qualifiers: Cholecystitis acuity: acute Qualified Code(s): K80.00 - Calculus of gallbladder with acute cholecystitis without obstruction (2) Hematuria Assessment/Plan: some microscopic blood on UA primary team to work up Code(s): R31.9 - HEMATURIA, UNSPECIFIED
[2017-05-29] MEDS: PIPERACILLIN/TAZOB 4.5 GM 100 ML IVPB SCH ×2 (02:04→08:21)
--- NOTE | 2017-05-29 07:53 | DS ---
Physical Examination Vital Signs: Vital Signs Temperature 98.2 F 05/29/17 06:00 Pulse Rate 52 L 05/29/17 06:00 Respiratory Rate 18 05/29/17 06:00 Blood Pressure 111/56 05/29/17 06:00 O2 Sat by Pulse Oximetry (%) 98 05/28/17 21:00 Constitutional: Yes: Mild Distress Eyes: Yes: WNL HENT: Yes: WNL Neck: Yes: WNL Cardiovascular: Yes: WNL Respiratory: Yes: WNL Gastrointestinal: Yes: Tenderness Musculoskeletal: Yes: WNL Extremities: Yes: WNL Edema: No Peripheral Pulses WNL: Yes Integumentary: Yes: WNL Wound/Incision: Yes: Clean/Dry Neurological: Yes: WNL ...Motor Strength: WNL Psychiatric: Yes: WNL Labs: CBC, BMP 05/28/17 07:45 05/28/17 07:45 Discharge Summary Reason For Visit: CHOLECYSTITIS Current Active Problems Calculus of gallbladder with cholecystitis without biliary obstruction (Acute) Cholecystitis (Acute) Hematuria (Acute) Procedures: Principal: LAPCHOLCYSTECTOMY Other Procedures: CT ABD Hospital Course: ADMITTED INFECTED GALLBLADDER, SURGICAL CHOLCYSTECTOMY TOLERATED WELL Condition: Good - Instructions Diet, Activity, Other Instructions: Postoperative instructions: You had a laparoscopic cholecystectomy on 05/27/[address] Amrik Christensen of [facility]. Resume your usual activities gradually, but no heavy exertion or lifting more than 10-15 pounds for 4-6 weeks. Remove dressings Monday evening. Sticky tapes will fall off by themselves. You may then shower daily, just pat the incision areas dry. Eat lightly at first, but advance to your usual diet as tolerated. For pain, use Tylenol and/or Ibuprofen 400-600mg every 6 hrs as needed; you can alternate these if needed. That means you can take one or the other every 3 hours or more if needed. Do not take more than 3000mg of acetaminophen in a day. Call Dr. Christensen's office at [phone] for your postop appointment (Monday in 2 weeks after surgery). Call Dr. Christensen if you have: - increasing pain not responsive to pain medication - fever of 101F or higher - vomiting - unusual or increasing bleeding or drainage from wounds - increasing redness or swelling at wound sites - inability to urinate Referrals: Feliz Beth MD [Staff Physician] - Zamzam Ruth MD [Primary Care Provider] - Disposition: HOME - Home Medications Comprehensive Discharge Medication List: Ambulatory Orders Meclizine HCl [Antivert -] 25 mg PO TID #21 tablet 02/03/16 Acetaminophen [Tylenol .Regular Strength -] 325 mg PO Q4H PRN #0 tablet
[2017-05-29 09:20] VITALS: BP 133/75; PULSE 61; TEMP 98.8
--- NOTE | 2017-05-30 13:44 | PATH ---
Surgical Pathology Report Patient Name: HA HOWARD Med. Rec. #: [id number] /Age/Gender: 1990 (Age: 26) / M Account: [id number] Location: [address] [place] [address] Taken: 05/27/2017 Received: 05/29/2017 Reported: 05/30/2017 Physicians: Emerald Roach M.D. Specimen(s) Received GALLBLADDER Clinical History Acute cholecystitis Final Diagnosis GALLBLADDER, CHOLECYSTECTOMY: CHRONIC CHOLECYSTITIS AND CHOLELITHIASIS. BENIGN REACTIVE PERICYSTIC LYMPH NODE PRESENT. Electronically Signed Evan Rawls M.D. Gross Description Received in formalin, labeled "gallbladder," is a 9.5 x 2.8 x 2.8 cm. gallbladder with a 0.2 cm. in length portion of cystic duct attached. There is a 1.2 cm in greatest dimension periductal lymph node present. The outer surface is jimenez-sparrow and varies from smooth to shaggy. The lumen contains yellow, tenacious bile as well as abundant brown-yellow, irregular to fragmented choleliths ranging from 0.1-1.2 cm in greatest dimension. The mucosa is jimenez and eroded. The wall of the gallbladder measures 0.1 cm. in thickness. Corporate Accountant sections are submitted in 2 cassettes as follows: 1-cystic duct margin and one whole bisected lymph node; 2-b2b sales representative gallbladder mucosa. /05/29/2017 [facility]05/29/2017
--- NOTE | 2017-06-03 15:00 | OP ---
DATE OF OPERATION: 05/27/2017 PREOPERATIVE DIAGNOSIS: Acute cholecystitis. POSTOPERATIVE DIAGNOSIS: Acute cholecystitis. PROCEDURE PERFORMED: Laparoscopic cholecystectomy. SURGEON: Amrik Christensen MD PATENT LEGAL ASSISTANT: Timmy Cat MD ANESTHESIA: General endotracheal and local (10 mL of 1% lidocaine plus 0.5% Marcaine). ESTIMATED BLOOD LOSS: 10 mL. FLUIDS: Crystalloid, 1 L. SPECIMEN: Gallbladder to Pathology. FINDINGS: An enlarged edematous gallbladder with multiple stones. The critical view was identified. DISPOSITION: Stable and extubated to PACU. INDICATIONS FOR PROCEDURE: Patient is a 26-year-old healthy male who presented to the emergency room with intermittent right upper quadrant pain over the previous 6 months related to fatty food intake, but 2 days prior to admission began experiencing right upper quadrant pain that did not go away associated with nausea, but no vomiting. In the ER, CT scan and ultrasound were consistent with acute cholecystitis with multiple gallstones, wall thickening, and some pericholecystic edema without biliary dilation. He has been started on fluids and antibiotics. His pain has mostly resolved. He is brought to the operating room for laparoscopic cholecystectomy. Risks, benefits, and alternatives of the procedure including, but not limited to, bleeding, infection, bile leak, injury to the bile duct and nearby structures, and need for further procedures have been explained to the patient who has signed informed consent. OPERATIVE TECHNIQUE: The patient was brought to the operating room and laid supine on the operating table. Sequential compression devices were applied to bilateral lower extremities, and antibiotics were given preoperatively as a continuation of treatment. After induction and intubation by Anesthesia, the patients abdomen was prepped with ChloraPrep and draped in sterile fashion after hair was clipped. A short supraumbilical midline incision was made with a scalpel and carried into subcutaneous tissues with electrocautery until the abdominal wall fascia was identified, scored, and elevated with Micheal clamps. The peritoneum was entered bluntly with the tip of a clamp, and a fingertip was used to ensure entry into the peritoneal cavity and the absence of any underlying adhesions. Stay suture of 0 Vicryl was placed in the fascia in figure-of-8 fashion for later closure, and the Tanika trocar inserted directly into the abdominal cavity, which was secured in place with the balloon. The abdomen was insufflated with carbon dioxide, and the laparoscope inserted to inspect the abdominal cavity. Patient was placed in reverse Trendelenburg position. An additional 5-mm port was placed in the subxiphoid area under direct vision. The gallbladder was visible at the edge of the liver and omentum, was gently manipulated away from and inferior to the gallbladder. Two additional 5-mm ports were then placed in the upper quadrant through which graspers were used to grasp the fundus of the gallbladder and elevated over the liver edge, and the infundibulum of the gallbladder retracted laterally. The gallbladder was noted to be inflamed and enlarged and somewhat intrahepatic. A [place] dissector was used to begin dissecting at the base of the gallbladder until the cystic duct was clearly identified and clearly entering the gallbladder and visualized from both medial and lateral in the critical view. This was clipped, two proximally and one distally, and divided with endo scissors. The cystic artery was isolated in similar fashion and also clipped, two proximally and one distally, and divided with endo scissors. A hook cautery was used to take the gallbladder off the liver bed, and when it was finally , the camera was switched to the subxiphoid port, and the gallbladder was placed in a bag through the Tanika port and retrieved out of the abdomen from that location. It was palpated and noted to have many stones present. This was then passed off the table for a pathology specimen. The Tanika trocar was reinserted, and pneumoperitoneum reestablished. The camera was returned to the umbilical port. The operative area was inspected for hemostasis. There was no active bleeding noted. The area was irrigated and suctioned clear of fluid, and the patient was returned in neutral position. The 5-mm ports were removed under direct vision. The Tanika port was also removed with the camera from the umbilical area, and then stay suture, tied to close the fascia there. The port sites were irrigated with saline solution and injected with local anesthetic. The skin was then closed with 4-0 Vicryl subcuticular sutures including a running at the umbilical site. Benzoin and Steri-Strips were applied to all the incisions. Dressings with gauze and Tegaderm were placed over these. Counts were correct at the end of the procedure. The patient was then awakened and extubated by Anesthesia. He was moved back to a stretcher and taken to the recovery room in stable condition having tolerated the procedure well. Dr. Cat assisted with entry into the peritoneal cavity and retraction and manipulation of the gallbladder. Emerald [id number] MTDD
== END 2017-05-29 11:01 | disposition home or self-care (01) | DRG 419 ==
LOC: JER 23:54 → JERBED 05-27 09:01 → J5S 05-27 11:05 → UNDODISIN 05-27 16:48
PROVIDERS: ADMIT Family Medicine; ATTEND Family Medicine
PROC: 0FT44ZZ Resection of Gallbladder, Percutaneous Endoscopic Approach (ICD-10-PCS; principal; 2017-05-27 18:00)
DX: K81.0 Acute cholecystitis (principal); R31.9 Hematuria, unspecified
CPT/HCPCS: 36415; 74176; 76705-TC; 80048; 80053; 81003; 81015; 83690; 85025; 85027; 87040; 87086; 88304-TC; 94760; 99283-25

== ENCOUNTER 2017-11-24 15:26 | Emergency (ER) | payer BC ==
--- NOTE | 2017-11-24 15:32 | PDOC ---
Rapid Medical Evaluation Time Seen by Provider: 11/24/17 15:28 Medical Evaluation: Allergies Allergy/AdvReac Type Severity Reaction Status Date / Time No Known Allergies Allergy Verified 11/24/17 15:28 11/24/17 15:29 Pt presents to the ED with complaints of:boil under rt armpit x 1 week, [employer], no DM, no hx of MRSA On brief exam: 5x 6 cm rt axilla abscess with surrounding erythema. center draining purulent drainage Pt ordered for: wound cx Pt to proceed to the ED Discharge Disposition - Diagnosis Abscess of right axilla - Referrals - Patient Instructions - Post Discharge Activity
[2017-11-24 15:33] VITALS: BP 174/96; PULSE 75; TEMP 99.5; BMI 34.8
--- NOTE | 2017-11-24 16:57 | PDOC ---
History of Present Illness - General Chief Complaint: Abscess Boil Stated Complaint: ABSCESS/ RT AXILLA Time Seen by Provider: 11/24/17 15:28 - History of Present Illness Initial Comments: 11/24/17 16:57 CHIEF COMPLAINT: abscess HISTORY OF PRESENT ILLNESS: 27 yo M with no PMH presents to fast track with abscess to R axilla. Patient reports that he noticed "a small bump two weeks ago, but then the last two days it just got huge." Patient denies any history of DM or other immunocompromised state. Patient denies any fever, chills, nausea, vomiting, or diarrhea. PAST MEDICAL HISTORY: Denies past medical history FAMILY HISTORY: Denies SOCIAL HISTORY: Denies tobacco, alcohol, illicit drug use. SURGICAL HISTORY: Denies ALLERGIES: No known drug allergies REVIEW OF SYSTEMS General/Constitutional: Denies fever or chills. Denies weakness, weight change. HEENT: Denies change in vision. Denies ear pain or discharge. Denies sore throat. Cardiovascular: Denies chest pain or shortness of breath. Respiratory: Denies cough, wheezing, or hemoptysis. Gastrointestinal: Denies nausea, vomiting, diarrhea or constipation. Denies rectal bleeding. Genitourinary: Denies dysuria, frequency, or change in urination. Musculoskeletal: Denies joint or muscle swelling or pain. Denies neck or back pain. Skin and breasts: "I have a huge bump on my armpit." PHYSICAL EXAM General Appearance: Well-appearing, appropriately dressed. No apparent distress. HEENT: EOMI, PERRLA. No photophobia, scleral icterus. Respiratory/Chest: Lungs CTAB. Cardiovascular: RRR. S1, S2. Gastrointestinal/Abdominal: Normal bowel sounds. Abdomen soft, non-distended. No tenderness or rebound tenderness. No organomegaly, pulsatile mass, guarding , hernia, hepatomegaly, splenomegaly. Musculoskeletal/Extremities: Normal inspection. FROM of all extremities, normal capillary refill. Pelvis Stable. No CVA tenderness. No tenderness to extremities, pedal edema, swelling, erythema or deformity. Integumentary: 5 cm x 6 cm tender, fluctuant abscess with minimal purulent drainage to R axilla. No erythema, warmth, streaking. 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 Fully oriented, alert. Appropriate mood/affect. Motor strength 5/5. No appreciable EOM palsy, facial droop or sensory deficit. 11/24/17 17:48 Past History - Past Medical History Allergies/Adverse Reactions: Allergies Allergy/AdvReac Type Severity Reaction Status Date / Time No Known Allergies Allergy Verified 11/24/17 15:28 Home Medications: Ambulatory Orders Sulfamethoxazole/Trimethoprim [Bactrim Ds -] 1 tab PO BID #14 tablet 11/24/17 Asthma: Yes (childhood) COPD: No Hypercholesterolemia: Yes - Surgical History Cholecystectomy: Yes - Suicide/Smoking/Psychosocial Hx Smoking History: Never smoked Have you smoked in the past 12 months: Yes Number of Cigarettes Smoked Daily: 0 Cigars Per Day: 1 Information on smoking cessation initiated: No 'Breaking Loose' booklet given: 05/27/17 Hx Alcohol Use: No Drug/Substance Use Hx: No Substance Use Type: None Hx Substance Use Treatment: No *Physical Exam - Vital Signs Last Vital Signs Temp Pulse Resp BP Pulse Ox 99.5 F 75 18 174/96 100 11/24/17 15:29 11/24/17 15:29 11/24/17 15:29 11/24/17 15:29 11/24/17 15:29 Medical Decision Making - Medical Decision Making 11/24/17 17:51 27 yo M with no PMH presents to fast track with abscess to R axilla. Abscess I&D performed (see procedure note). BActrim rx sent to pharm. Post procedure instructions given to patient, patient verbalized understanding and agrees to plan. *DC/Admit/Observation/Transfer Diagnosis at time of Disposition: Abscess of right axilla - Discharge Dispostion Disposition: HOME Condition at time of disposition: Stable Admit: No - Prescriptions Prescriptions: Sulfamethoxazole/Trimethoprim [Bactrim Ds -] 1 tab PO BID #14 tablet - Referrals Referrals: Feliz Beth MD [Primary Care Provider] - - Patient Instructions Printed Discharge Instructions: DI for Incision and Drainage of a Skin Abscess Additional Instructions: Please take medications as prescribed and complete the ENTIRE course of antibiotics. As discussed, keep the area of the abscess clean and dry for the next 24 hours. Afterwards you may wash with mild soap and water. Please change the dressing daily. Return in 48 HOURS for wound recheck and/or packing removal. If you develop any fever, chills, nausea, vomiting, or diarrhea, or the area of the abscess becomes red, hot, more swollen, or painful, please return to the ER. - Post Discharge Activity Forms/Work/School Notes: Back to Work
== END 2017-11-24 18:04 | disposition home or self-care (01) ==
LOC: JERFT 15:26
PROC: 0X940ZZ Drainage of Right Axilla, Open Approach (ICD-10-PCS; principal; 2017-11-24)
DX: L02.411 Cutaneous abscess of right axilla (principal)
CPT/HCPCS: 87070; 87077; 87205; 99281-25

== ENCOUNTER 2017-11-27 11:40 | Emergency (ER) | payer BC ==
[2017-11-27 11:57] VITALS: BP 152/79; PULSE 72; TEMP 99.2; BMI 34.8
--- NOTE | 2017-11-27 13:21 | PDOC ---
Suture Removal/Wound Check HPI - History of Present Illness Chief Complaint: Revisit,Wound Recheck Stated Complaint: PACKAGE REMOVAL Time Seen by Provider: 11/27/17 12:21 Treated at: [facility] Date of Last ED visit: 11/24/17 - Previous ED Treatment Type of procedure performed on last visit: Yes: I&D of Abscess Antibiotics Prescribed: Yes - Onset of Previous Treatment Comment:: 11/27/17 13:17 Patient returns for packing removal s/p I&D 3 days ago. Patient denies any fever, chills, nausea, vomiting, diarrhea and reports abscess is "much better' s /p I&D. Patient denies any swelling, erythema, warmth to site of abscess at this time. Packing removed. Abscess appears to be healing well but still with mild induration surrounding incision site. Advised patient to finished antibiotics as prescribed and f/u with surgery if abscess/induration is still present after entire course of antibiotics. Advised patient of signs and symptoms for return to ER; patient verbalized understanding and agrees to plan. Past History - Past Medical History Allergies/Adverse Reactions: Allergies Allergy/AdvReac Type Severity Reaction Status Date / Time No Known Allergies Allergy Verified 11/27/17 11:53 Home Medications: Ambulatory Orders Sulfamethoxazole/Trimethoprim [Bactrim Ds -] 1 tab PO BID #14 tablet 11/24/17 Sulfamethoxazole/Trimethoprim [Bactrim Ds -] 1 tab PO BID #6 tablet 11/27/17 Asthma: Yes (childhood) COPD: No Hypercholesterolemia: Yes - Surgical History Cholecystectomy: Yes - Suicide/Smoking/Psychosocial Hx Smoking History: Never smoked Have you smoked in the past 12 months: Yes Number of Cigarettes Smoked Daily: 0 Cigars Per Day: 1 'Breaking Loose' booklet given: 05/27/17 Hx Alcohol Use: No Drug/Substance Use Hx: No Substance Use Type: None Hx Substance Use Treatment: No *DC/Admit/Observation/Transfer Diagnosis at time of Disposition: Abscess packing removal - Discharge Dispostion Disposition: HOME Condition at time of disposition: Stable Admit: No - Prescriptions Prescriptions: Sulfamethoxazole/Trimethoprim [Bactrim Ds -] 1 tab PO BID #6 tablet - Referrals Referrals: Feliz Beth MD [Primary Care Provider] - Brice Herzog MD [Staff Physician] - - Patient Instructions Printed Discharge Instructions: DI for Incision and Drainage of a Skin Abscess Additional Instructions: Please finish all antibiotics as prescribed. As discussed, if your abscess persists after entire course of antibiotics, please follow up with surgery for further evaluation. If you develop any fever, chills, vomiting, diarrhea, or any new or worsening symptoms, please return to the ER. - Post Discharge Activity
== END 2017-11-27 13:24 | disposition home or self-care (01) ==
LOC: JERFT 11:40
DX: Z48.01 Encounter for change or removal of surgical wound dressing (principal)
CPT/HCPCS: 99281-25

== ENCOUNTER 2018-03-12 07:15 | Emergency (ER) | payer BC ==
[2018-03-12 07:20] VITALS: BMI 32.1
--- NOTE | 2018-03-12 08:06 | PDOC ---
History of Present Illness - General History Source: Patient Exam Limitations: No Limitations - History of Present Illness Initial Comments: The patient is a 27 year old male with a significant past medical history of hematuria (6 month history, unknown cause), hyperlipidemia, right axilla abscess and asthma (childhood ) who presents to the emergency department complaining of a 1 week history of right shoulder pain, right hand and right foot numbness and tingling. The patient reports a week history of right shoulder pain without any trauma. The patient describes the pain as localized, ranked 6/10 in severity, and is exacerbated with flexion. He states the pain is similar to when he dislocated the same shoulder. The patient reports associated numbness and tingling on the dorsal side of the right hand and right foot that has been constant for 1 week. 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 Of note, the patient states prior urine analysis revealed blood in his urine (not visible) and he went in for ultrasound last week with Dr. Beth. The patient denies chest pain, shortness of breath, headache, and dizziness. Denies fevers, chills, nausea, vomiting, diarrhea, and constipation. Denies dysuria, frequency, and urgency. Allergies: NKA Past surgical history: Cholecystectomy (06/2018) Social history: No reported cigarette, alcohol, or drug use. PCP: Dr. Feliz Beth ([phone]) <Coleen Tobin - Last Filed: 03/12/18 09:56> - General History Source: Patient Exam Limitations: No Limitations <Neela Boyle - Last Filed: 03/12/18 11:49> - General Chief Complaint: Pain Stated Complaint: SHOULDER PAIN Time Seen by Provider: 03/12/18 08:05 Past History <Coleen Tobin - Last Filed: 03/12/18 09:56> - Past Medical History Asthma: Yes (childhood) COPD: No DVT: No Hypercholesterolemia: Yes - Surgical History Cholecystectomy: Yes - Suicide/Smoking/Psychosocial Hx Smoking History: Never smoked Have you smoked in the past 12 months: Yes Number of Cigarettes Smoked Daily: 0 Cigars Per Day: 1 Information on smoking cessation initiated: No 'Breaking Loose' booklet given: 05/27/17 Hx Alcohol Use: No Drug/Substance Use Hx: No Substance Use Type: None Hx Substance Use Treatment: No <Neela Boyle - Last Filed: 03/12/18 11:49> - Past Medical History Allergies/Adverse Reactions: Allergies Allergy/AdvReac Type Severity Reaction Status Date / Time No Known Allergies Allergy Verified 03/12/18 07:58 Home Medications: Ambulatory Orders NK [No Known Home Medication] 03/12/18 Review of Systems - Review of Systems Able to Perform ROS?: Yes Comments:: CONSTITUTIONAL: Absent: Fever, Chills, Diaphoresis, Generalized Weakness, Malaise, Loss of Appetite HEENT: Absent: Rhinorrhea, Nasal Congestion, Throat Pain, Throat Swelling, Difficulty Swallowing, Mouth Swelling, Ear Pain, Eye Pain, Visual Changes CARDIOVASCULAR: Absent: Chest Pain, Syncope, Palpitations, Irregular Heart Rate, Lightheadedness , Peripheral Edema RESPIRATORY: Absent: Cough, Shortness of Breath, SOB with Exertion, Orthopnea, Wheezing, Stridor, Hemoptysis GASTROINTESTINAL: Absent: Abdominal pain, Abdominal Distension, Nausea, Vomiting, Diarrhea, Constipation, Melena, Hematochezia GENITOURINARY: Absent: Dysuria, Frequency, Urgency, Hesitancy, Flank Pain, Genital Pain MUSCULOSKELETAL: (+)Right shoulder pain. (+)Right hand numbness. (+)Right foot numbness. Absent: Myalgia, Arthralgia, Joint Swelling, Back pain, Neck Pain SKIN: Absent: Rash, Itching, Pallor HEMEATOLOGIC/IMMUNOLOGIC: Absent: Easy Bleeding, Easy Bruising, Lymphadenopathy, Frequent infections ENDOCRINE: Absent: Unexplained Weight Gain, Unexplained Weight Loss, Heat Intolerance, Cold Intolerance NEUROLOGIC: Absent: Headache, Focal Weakness, Paresthesias, Vertigo, Lightheadedness, Unsteady Gait, Seizure, Mental Status Changes, Incontinence PSYCHIATRIC: Absent: Anxiety, Depression <Coleen Tobin - Last Filed: 03/12/18 09:56> *Physical Exam - Vital Signs Last Vital Signs Temp Pulse Resp BP Pulse Ox 98.3 F 66 16 138/83 100 03/12/18 07:17 03/12/18 07:17 03/12/18 07:17 03/12/18 07:17 03/12/18 07:17 - Physical Exam Comments: GENERAL: The patient is in no acute distress. HEAD: Normal with no signs of trauma. EYES: PERRLA, EOMI, sclera anicteric, conjunctiva clear. ENT: Ears normal, nares patent, oropharynx clear without exudates. Moist mucous membranes. NECK: Normal range of motion, supple without lymphadenopathy, JVD, or masses. LUNGS: Breath sounds equal, clear to auscultation bilaterally. No wheezes, and no crackles. HEART:Regular rate and rhythm, normal S1 and S2 without murmur, rub or gallop. ABDOMEN: Soft, nontender, normoactive bowel sounds. No guarding, no rebound. No masses palpable. EXTREMITIES: (+)Anterior right shoulder tenderness. (+)Diminished sensation over lateral aspect of right hand, otherwise normal. Normal range of motion. No edema. No clubbing or cyanosis. No erythema. Palpable pulses in foot. NEUROLOGICAL: Cranial nerves II through XII grossly intact. Normal speech. No focal neurological deficits. MUSCULOSKELETAL: Back non-tender to palpation, no CVA tenderness SKIN: Warm, Dry, normal turgor, no rashes or lesions noted. <Coleen Tobin - Last Filed: 03/12/18 09:56> - Vital Signs Last Vital Signs Temp Pulse Resp BP Pulse Ox 98.3 F 66 16 138/83 100 03/12/18 07:17 03/12/18 07:17 03/12/18 07:17 03/12/18 07:17 03/12/18 07:17 <Neela Boyle - Last Filed: 03/12/18 11:49> ED Treatment Course - Medications Given in the ED: ED Medications Discontinued Medications Generic Name Dose Route Start Last Admin Trade Name Freq PRN Reason Stop Dose Admin Acetaminophen 650 mg 03/12/18 08:29 03/12/18 08:32 Tylenol - PO 03/12/18 08:30 650 mg ONCE ONE Administration Ibuprofen 600 mg 03/12/18 08:21 03/12/18 08:31 Motrin - PO 03/12/18 08:22 Not Given ONCE ONE <Coleen Tobin - Last Filed: 03/12/18 09:56> - LABORATORY CBC & Chemistry Diagram: 03/12/18 10:50 03/12/18 10:50 <Neela Boyle - Last Filed: 03/12/18 11:49> Medical Decision Making - Medical Decision Making Consulted with Dr. Beth at 9:[address] 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 He presents to the ER with a complaint of right shoulder pain No trauma Pt also notes no trauma he also has had numbness of the right hand and foot No weakness On examination: RRR CTA Right shoulder - no limitations in range of motion, no evidence of dislocation 2+ RP Sensation in tact, motor intact in the right hand Sensation in tact, motor intact in the right foot 2+ PT, 1+ DP CT head: No acute IC pathology Xray Shoulder: Slightly widened joint space Case reviewed with Dr Beth Recommends Neuro follow up Call placed to Dr Perea He will see this patient in follow up tomorrow Clinical impression: numbness of the hand and foot, initial presentation Right shoulder pain, initial presentation 03/12/18 11:05 Pt spoke with me Apparently the patient is upset that he was not given a definitive diagnosis today in the ER He is requesting labs Will add on labs prior to discharge 03/12/18 11:49 Laboratory Tests 03/12/18 03/12/18 10:50 10:50 WBC 4.9 D Hgb 13.9 Hct 41.1 Plt Count 199 Sodium 142 Potassium 4.2 Chloride 107 Carbon Dioxide 28 BUN 15 D Creatinine 0.9 Random Glucose 91 Will discharge to home clinical Impression: as above, initial presentation <Neela Boyle - Last Filed: 03/12/18 11:49> *DC/Admit/Observation/Transfer - Attestations Scribe Attestion: Documentation prepared by Coleen Tobin, acting as medical instrument technician for Neela Boyle MD. <Coleen Tobin - Last Filed: 03/12/18 09:56> - Discharge Dispostion Admit: No <Neela Boyle - Last Filed: 03/12/18 11:49> Diagnosis at time of Disposition: Numbness and tingling Shoulder pain, right Qualifiers: Chronicity: acute Qualified Code(s): M25.511 - Pain in right shoulder - Discharge Dispostion Disposition: HOME Condition at time of disposition: Stable - Referrals Referrals: Feliz Beth MD [Primary Care Provider] - Irwin Perea MD [Staff Physician] - - Patient Instructions Printed Discharge Instructions: DI for Shoulder Pain, DI for Numbness/tingling Additional Instructions: Thank you for coming to the Er today Please take tylenol for shoulder pain Please follow up with Dr Perea (neurologist) for further evaluation of your numbness you can follow up with Dr Beth as already scheduled Please review your imaging results Return to the ER for any other concerns or complaints - Post Discharge Activity Forms/Work/School Notes: Back to Work
[2018-03-12] MEDS ORDERED: IBUPROFEN 600 MG TABLET (FP) PO ONE ×2 (08:21→08:28)
[2018-03-12] MEDS ORDERED: ACETAMINOPHEN 325 MG TABLET (FP) PO ONE (08:29)
[2018-03-12] MEDS ORDERED: ACETAMINOPHEN 325 MG TABLET (FP) ONE (08:34)
[2018-03-12 10:44] VITALS: BP 135/79; PULSE 63; TEMP 98.4
[2018-03-12 10:57] LABS: BASO % 0.5 % (0-2.0); EOS % 1.7 % (0-4.5); HEMATOCRIT 41.1 % (35.4-49); HEMOGLOBIN 13.9 GM/dL (11.7-16.9); LYMPH % 36.9 % (8-40); MCH 28.2 pg (25.7-33.7); MCHC 33.8 g/dl (32.0-35.9); MEAN CELL VOLUME 83.6 fl (80-96); MEAN PLT VOLUME 8.9 fl (7.5-11.1); MONO % 5.1 % (3.8-10.2); NEUT % 55.8 % (42.8-82.8); PLATELET COUNT 199 K/MM3 (134-434); RBC 4.92 M/mm3 (4.00-5.60); RDW 12.2 % (11.9-15.9); WHITE BLOOD COUNT 4.9 K/mm3 (4.0-10.0)
[2018-03-12 11:20] LABS: ANION GAP 7 (8-16); BLOOD UREA NITROGEN 15 mg/dL (7-18); CALCIUM 9.3 mg/dL (8.5-10.1); CHLORIDE 107 mmol/L (98-107); CO2 28 mmol/L (21-32); GLUCOSE,RANDOM 91 mg/dL (74-106); POTASSIUM 4.2 mmol/L (3.5-5.1); SODIUM 142 mmol/L (136-145)
[2018-03-12 11:21] LABS: CREATININE 0.9 mg/dL (0.7-1.3)
== END 2018-03-12 12:25 | disposition home or self-care (01) ==
LOC: JER 07:15
DX: M25.511 Pain in right shoulder (principal); R20.0 Anesthesia of skin
CPT/HCPCS: 36415; 70450-TC; 73030-TC-RT-FY; 80048; 85025; 99282-25

== ENCOUNTER 2019-05-18 11:04 | Emergency (ER) | payer BC, OTHER ==
[2019-05-18 11:13] VITALS: BMI 34.2
--- NOTE | 2019-05-18 12:06 | PDOC ---
History of Present Illness <ScanlonMayelabon Sibley - Last Filed: 05/18/19 13:30> - History of Present Illness Initial Comments: 05/18/19 11:56 28 yo M w/ a PMHx of GERD, cholecystectomy, shoulder pain comes in c/o 5 days of a sharp constant pain to the L side of the chest which radiates to the left arm, associated with occasional L arm numbness. NO numbness now. Also c/o mild back pain behind the shoulder. Pain worsens with deep breathing, and palpation, no relation to movement. 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 NO recent fall/trauma. Also c/o watery diarrhea for the past 5 days, about 3 times a day, non bloody diarrhea. No vomiting, only mild nausea. (+)mild lightheadedness and generalized fatigue. He ate seafood 5 days ago but mohinder one else who ate that food is sick, no recent travel. no recent antibiotic use. No fever/chills, no shortness of breath, no cough, no URI symptoms, no abdominal pain, no urinary/penile complaints, no change in appetite. Pt says that he was told in 2017 that he was a small tear in his shoulder but never followed up. He has a PMD (+)Family h/o HTN, Heart disease, no family h/o sudden cardiac at a young age. Denies smoking, no drug use. 05/18/19 12:56 05/18/19 13:02 <Eduarda Marquez - Last Filed: 05/18/19 15:03> - General Chief Complaint: Pain Stated Complaint: CHEST PAIN Time Seen by Provider: 05/18/19 11:35 Past History <ScanlonMayela - Last Filed: 05/18/19 13:30> - Past Medical History Asthma: Yes (childhood) COPD: No DVT: No Hypercholesterolemia: Yes - Surgical History Cholecystectomy: Yes - Suicide/Smoking/Psychosocial Hx Smoking History: Never smoked Have you smoked in the past 12 months: Yes Number of Cigarettes Smoked Daily: 0 Cigars Per Day: 1 'Breaking Loose' booklet given: 05/27/17 Hx Alcohol Use: No Drug/Substance Use Hx: No Substance Use Type: None Hx Substance Use Treatment: No <Eduarda Marquez - Last Filed: 05/18/19 15:03> - Past Medical History Allergies/Adverse Reactions: Allergies Allergy/AdvReac Type Severity Reaction Status Date / Time No Known Allergies Allergy Verified 05/18/19 11:13 Home Medications: Ambulatory Orders NK [No Known Home Medication] 03/12/18 Review of Systems - Review of Systems Able to Perform ROS?: Yes Constitutional: Yes: Malaise. No: Chills, Fever, Night Sweats HEENTM: No: Eye Pain, Recent change in vision, Throat Pain Respiratory: No: Cough, Shortness of Breath Cardiac (ROS): Yes: Chest Pain. No: Palpitations, Chest Tightness ABD/GI: Yes: Diarrhea, Nausea. No: Vomiting, Abdominal cramping : No: Dysuria, Hematuria Integumentary: No: Rash Neurological: No: Headache Psychiatric: No: Change in Appetite Endocrine: No: Unexplained Weight Loss <Eduarda Marquez - Last Filed: 05/18/19 15:03> *Physical Exam - Vital Signs Last Vital Signs Temp Pulse Resp BP Pulse Ox 98.4 F 66 18 128/75 99 05/18/19 11:11 05/18/19 11:11 05/18/19 11:11 05/18/19 11:11 05/18/19 11:39 <Mayela Scanlon - Last Filed: 05/18/19 13:30> - Vital Signs Last Vital Signs Temp Pulse Resp BP Pulse Ox 98.4 F 66 18 128/75 99 05/18/19 11:11 05/18/19 11:11 05/18/19 11:11 05/18/19 11:11 05/18/19 11:39 - Physical Exam General Appearance: Yes: Nourished. No: Apparent Distress HEENT: positive: SIVA, Normal ENT Inspection, Normal Voice. negative: Pale Conjunctivae, Scleral Icterus (R), Scleral Icterus (L) Neck: positive: Supple. negative: Decreased range of motion, Tender midline Respiratory/Chest: positive: Chest Tender (L sided), Lungs Clear, Normal Breath Sounds. negative: Respiratory Distress, Accessory Muscle Use Cardiovascular: positive: Regular Rhythm, Regular Rate Gastrointestinal/Abdominal: positive: Normal Bowel Sounds, Soft. negative: Tender, Decreased BS, Guarding, Rebound, Tenderness Musculoskeletal: positive: Normal Inspection. negative: CVA Tenderness, Decreased Range of Motion Extremity: positive: Normal Capillary Refill, Normal Inspection, Normal Range of Motion, Tender ((+)L diffuse shoulder tenderness. FROM, 5/5 strength, full sensory function, equal bilateral radial pulses, NVI). negative: Pedal Edema, Swelling, Erythema Integumentary: positive: Normal Color, Dry. negative: Jaundice, Rash Neurologic: positive: Fully Oriented, Alert, Normal Mood/Affect <Eduarda Marquez - Last Filed: 05/18/19 15:03> ED Treatment Course - LABORATORY CBC & Chemistry Diagram: 05/18/19 12:30 05/18/19 12:30 - ADDITIONAL ORDERS Additional order review: Laboratory Results 05/18/19 05/18/19 12:30 12:30 Sodium 140 Potassium 4.5 Chloride 108 H Carbon Dioxide 30 Anion Gap 3 L BUN 14.4 Creatinine 0.9 Est GFR (CKD-EPI)AfAm 132.37 Est GFR (CKD-EPI)NonAf 114.21 Random Glucose 88 Calcium 9.0 Phosphorus 3.6 Magnesium 2.5 H Total Bilirubin 0.7 AST 24 ALT 26 Alkaline Phosphatase 56 Creatine Kinase 229 Troponin I < 0.02 Total Protein 6.7 Albumin 3.9 Lipase 107 Urine Color Yellow Urine Appearance Cloudy Urine pH 7.5 D Ur Specific [place] 1.021 Urine Protein Negative Urine Glucose (UA) Negative Urine Ketones Negative Urine Blood Negative Urine Nitrite Negative Urine Bilirubin Negative Urine Urobilinogen 1.0 Ur Leukocyte Esterase Negative 05/18/19 12:30 RBC 4.95 MCV 83.9 MCHC 34.0 RDW 11.9 MPV 9.0 Neutrophils % 63.2 Lymphocytes % 28.5 D Monocytes % 6.4 Eosinophils % 1.2 Basophils % 0.7 - Medications Given in the ED: ED Medications Discontinued Medications Generic Name Dose Route Start Last Admin Trade Name Freq PRN Reason Stop Dose Admin Famotidine/Sodium Chloride 20 mg in 50 mls @ 100 mls/hr 05/18/19 12:21 12:59 Pepcid 20 Mg Premixed Ivpb - IVPB 05/18/19 12:50 100 mls/hr ONCE ONE Administration Ibuprofen 600 mg 05/18/19 12:21 05/18/19 12:58 Motrin - PO 05/18/19 12:22 600 mg ONCE ONE Administration Methocarbamol 1,000 mg 05/18/19 12:22 05/18/19 13:00 Robaxin - PO 05/18/19 12:23 Not Given ONCE ONE Ondansetron HCl 4 mg 05/18/19 12:21 05/18/19 12:59 Zofran Injection IVPUSH 05/18/19 12:22 4 mg ONCE ONE Administration <Mayela Scanlon - Last Filed: 05/18/19 13:30> - LABORATORY CBC & Chemistry Diagram: 05/18/19 12:30 05/18/19 12:30 <Eduarda Marquez - Last Filed: 05/18/19 15:03> Medical Decision Making - Medical Decision Making The patient was seen and evaluated in conjunction with midlevel provider under my direct supervision, ancillary studies were reviewed. I agree with the plan as outlined MARIAN Marquez. HPI, workup/dispo as outlined. VS reviewed, wnl. anticipate discharge, pcp followup, return precautions 05/18/19 13:30 <Mayela Scanlon - Last Filed: 05/18/19 13:30> - Medical Decision Making 05/18/19 13:04 28 yo M w/ L sided chest pain, shoulder pain with occasional arm numbness for 5 days, could be msk pain. EKG WNLs, will do a CXR, cardiac labs, give motrin. Also c/o diarrhe and nausea, will check abdominal labs, give pepcid, zofran and reassess 05/18/19 14:53 Pt feeling better, he ate crackers, drank gingerale, tolerated PO. Labs reviewed. WIll discharge with PMD, cardiology and orthopedics referral Return for worsening/concerning symptoms Pt verbalizes understanding and agrees with plan Case discussed with Dr. Scanlon who agrees with assessment and plan <Eduarda Marquez - Last Filed: 05/18/19 15:03> *DC/Admit/Observation/Transfer <Mayela Scanlon - Last Filed: 05/18/19 13:30> <Eduarda Marquez - Last Filed: 05/18/19 15:03> Diagnosis at time of Disposition: Diarrhea Qualifiers: Diarrhea type: unspecified type Qualified Code(s): R19.7 - Diarrhea, unspecified Shoulder pain, left Qualifiers: Chronicity: unspecified Qualified Code(s): M25.512 - Pain in left shoulder Chest pain Qualifiers: Chest pain type: unspecified Qualified Code(s): R07.9 - Chest pain, unspecified - Discharge Dispostion Disposition: HOME Condition at time of disposition: Stable - Referrals Referrals: Feliz Beth MD [Primary Care Provider] - Ashutosh Blake MD [Staff Physician] - Richmond Hall DO [Staff Physician] - - Patient Instructions Additional Instructions: Please follow up with your regular doctor, the building carpenter and the orthopedist doctor as explained. Return for worsening/concerning symptoms. - Post Discharge Activity
[2019-05-18] MEDS ORDERED: IBUPROFEN 600 MG TABLET (FP) PO ONE ×2 (12:21→12:36)
[2019-05-18] MEDS ORDERED: FAMOTIDINE 20 MG/50 ML IVPB 20 MG/50 ML MG IVPB ONE ×2 (12:21→12:37)
[2019-05-18] MEDS ORDERED: ONDANSETRON 4 MG/2 ML VIAL IVPUSH ONE (12:21)
[2019-05-18] MEDS ORDERED: METHOCARBAMOL 500 MG TABLET PO ONE (12:22)
[2019-05-18] MEDS ORDERED: METHOCARBAMOL 500 MG TABLET ONE (12:36)
[2019-05-18] MEDS ORDERED: ONDANSETRON 4 MG/2 ML VIAL ONE (12:37)
[2019-05-18 12:44] LABS: PH,URINE 7.5 (5.0-8.0); URINE APPEARANCE CLOUDY; URINE BILIRUBIN NEGATIVE (NEGATIVE); URINE COLOR YELLOW; URINE GLUCOSE (UA) NEGATIVE (NEGATIVE); URINE KETONE NEGATIVE (NEGATIVE); URINE LEUK ESTERASE NEGATIVE (NEGATIVE); URINE NITRITE NEGATIVE (NEGATIVE); URINE PROTEIN NEGATIVE (NEGATIVE)
[2019-05-18 12:46] LABS: BASO % 0.7 % (0-2.0); EOS % 1.2 % (0-4.5); HEMATOCRIT 41.5 % (35.4-49); HEMOGLOBIN 14.1 GM/dL (11.7-16.9); LYMPH % 28.5 % (8-40); MCH 28.5 pg (25.7-33.7); MEAN CELL VOLUME 83.9 fl (80-96); MONO % 6.4 % (3.8-10.2); NEUT % 63.2 % (42.8-82.8); RBC 4.95 M/mm3 (4.00-5.60); RDW 11.9 % (11.9-15.9); WHITE BLOOD COUNT 5.2 K/mm3 (4.0-10.0)
[2019-05-18 12:48] LABS: PLATELET COUNT 225 K/MM3 (134-434)
[2019-05-18 13:26] LABS: ALBUMIN 3.9 g/dl (3.4-5.0); ALK PHOS 56 U/L (45-117); ANION GAP 3 MMOL/L (8-16); BILIRUBIN,TOTAL 0.7 mg/dL (0.2-1); BLOOD UREA NITROGEN 14.4 mg/dL (7-18); CHLORIDE 108 mmol/L (98-107); CO2 30 mmol/L (21-32); CREATININE 0.9 mg/dL (0.55-1.3); GLUCOSE,RANDOM 88 mg/dL (74-106); LIPASE 107 U/L (73-393); MAGNESIUM 2.5 mg/dL (1.8-2.4); PHOSPHOROUS 3.6 mg/dL (2.5-4.9); POTASSIUM 4.5 mmol/L (3.5-5.1); SGOT/AST 24 U/L (15-37); SGPT/ALT 26 U/L (13-61); SODIUM 140 mmol/L (136-145); TOT PROT 6.7 g/dl (6.4-8.2)
[2019-05-18 14:32] VITALS: BP 137/63; PULSE 60; TEMP 98.2
--- NOTE | 2019-05-20 00:27 | EKG ---
Test Reason : Blood Pressure : / mmHG Vent. Rate : 065 BPM Atrial Rate : 065 BPM P-R Int : 156 ms QRS Dur : 096 ms QT Int : 410 ms P-R-T Axes : 019 059 047 degrees QTc Int : 426 ms NORMAL SINUS RHYTHM NORMAL ECG WHEN COMPARED WITH ECG OF 03-FEB-2016 12:43, NO SIGNIFICANT CHANGE WAS FOUND Confirmed by MD Sweet Edward ([id number]) on 05/20/2019 12:26:37 AM Referred By: Confirmed By:Flakito Sweet MD
== END 2019-05-18 15:12 | disposition home or self-care (01) ==
LOC: JER 11:04
PROC: 3E033GC Introduction of Other Therapeutic Substance into Peripheral Vein, Percutaneous Approach (ICD-10-PCS; principal; 2019-05-18)
PROC: 3E033GC Introduction of Other Therapeutic Substance into Peripheral Vein, Percutaneous Approach (ICD-10-PCS; 2019-05-18)
DX: R07.9 Chest pain, unspecified (principal); R19.7 Diarrhea, unspecified; K21.9 Gastro-esophageal reflux disease without esophagitis
CPT/HCPCS: 36415; 71046-TC-FY; 80053; 81003; 82550; 82553; 83690; 83735; 84100; 84484; 85025; 87086; 93005; 93010; 99282-25